=== PATIENT | male | born 1940 | race Caucasian/White ===

== ENCOUNTER 2023-10-20 06:51 | Day surgery (SDC) | payer MEDICARE ==
[2023-10-14 14:46] LABS: BASOPHILS # (AUTO) 0.1 X10'3 (0-0.2); BASOPHILS % (AUTO) 0.9 % (0-1); EOSINOPHILS # (AUTO) 0.8 X10'3 (0-0.9); EOSINOPHILS % (AUTO) 6.8 % (0-6); LYMPHOCYTES # (AUTO) 1.9 X10'3 (1.1-4.8); MEAN CORPUSCULAR HEMOGLOBIN 29.8 PG (27.0-31.0); MEAN CORPUSCULAR HGB CONC 34.4 g/dL (33.0-36.5); MEAN CORPUSCULAR VOLUME 86.6 FL (78-98); MEAN PLATELET VOLUME 8.8 FL (7.4-10.4); MONOCYTES # (AUTO) 0.7 X10'3 (0-0.9); MONOCYTES % (AUTO) 6.2 % (2-12); NEUTROPHILS # (AUTO) 7.9 X10'3 (1.8-7.7); NEUTROPHILS % (AUTO) 69.1 % (42-75); PRE OP HEMATOCRIT 40.8 % (42.0-52.0); PRE OP PLATELET COUNT 243 X10'3 (140-440); PRE OP WHITE BLOOD COUNT 11.4 10'3 (4.8-10.8); RED BLOOD COUNT 4.71 X10'6 (4.70-6.10); RED CELL DISTRIBUTION WIDTH 15.2 % (11.5-14.5)
[2023-10-14 15:01] LABS: ALBUMIN 3.6 G/DL (3.4-5.0); ALBUMIN/GLOBULIN RATIO 0.9 (1.1-1.5); ALKALINE PHOSPHATASE 120 IU/L (46-116); BLOOD UREA NITROGEN 40 MG/DL (7-18); BUN/CREATININE RATIO 23.1 (10.0-20.0); CALCIUM 9.1 MG/DL (8.5-10.1); CHLORIDE 107 MMOL/L (99-107); CREATININE 1.73 MG/DL (0.60-1.10); PRE OP ALT 32 U/L (30-65); PRE OP ANION GAP 9 (8-16); PRE OP AST 22 U/L (10-37); PRE OP BILIRUB, TOTAL 0.6 MG/DL (0.0-1.0); PRE OP GLUCOSE 99 MG/DL (70-104); PRE OP POTASSIUM 4.1 MMOL/L (3.4-5.1); PRE OP SODIUM 142 MMOL/L (135-145); TOTAL CARBON DIOXIDE 26.3 MMOL/L (24-32); TOTAL PROTEIN 7.7 G/DL (6.4-8.2); eGFR 38 ML/MIN
[~2023-10-20] VITALS: Ht 180.3 cm; Wt 135.2 kg
[2023-10-20] VITALS (8 sets, daily range): BP systolic 120–155; BP diastolic 61–85; PULSE 55–78; RESP 13–16; TEMP 78–97.8; O2SAT 95–100
[~2023-10-20 06:51] MED LIST: ALLO100T PO; ASCO-134 PO; ASPI-612 PO; DOCU100C40 PO; FAMO40TA8 PO; FLO0.4C PO; FURO40TA4 PO; GABA-530 PO; LEVO112T5 PO; MONT-40 PO; MULT-1085 PO; NAPR-996 PO; POTA-208 PO; VERA120T86 PO
[2023-10-20] MEDS: cefazolin 2gm/D5W 100mL 100 ML IV ONE (08:01)
[2023-10-20] MEDS: famotidine 20mg tablet PO ONE (08:01)
[2023-10-20] MEDS: ringers solution, lacted 1,000 ML IV SCH (08:01)
[2023-10-20] MEDS ORDERED: hydrALAZINE 20mg/ml inj. IV PRN (08:30)
[2023-10-20] MEDS ORDERED: ondansetron/PF 4mg/2ml inj IV PRN (08:30)
[2023-10-20] MEDS ORDERED: ringers solution, lacted 1,000 ML IV SCH (08:30)
[2023-10-20] MEDS ORDERED: morphine 2 MG/ML inj. syringe IV PRN (08:30)
[2023-10-20] MEDS ORDERED: labetalol 20mg/4ml (5mg/ml) syringe IV PRN (08:30)
[2023-10-20] MEDS ORDERED: morphine 4 MG/ML inj SYRINge IV PRN (08:30)
[2023-10-20] MEDS ORDERED: fentaNYL/PF 50MCG/1 ML 2ML syringe ONE (09:30)
[2023-10-20] MEDS ORDERED: MIDAZolam 1 MG/ML 5ML VIAL ONE (09:30)
[2023-10-20] MEDS ORDERED: propofol inj 20 ML IV ONE (10:10)
[2023-10-20] MEDS ORDERED: LIDOcaine 2% (20mg/ml) 5ml vial ONE (10:10)
[2023-10-20] MEDS: BUPIVAcaine/PF 2.5mg/ml (0.25%) 10ml vial ONE (10:14)
[2023-10-20] MEDS: LIDOcaine 2% (20mg/ml) 5ml vial ONE (10:15)
== END 2023-10-20 11:17 | disposition home or self-care (01) ==
LOC: PAS 06:51
PROVIDERS: ATTEND Orthopaedic Surgery Hand Surgery
DX: G56.01 Carpal tunnel syndrome, right upper limb (principal); M65.351 Trigger finger, right little finger; I10 Essential (primary) hypertension; E66.9 Obesity, unspecified; K21.9 Gastro-esophageal reflux disease without esophagitis; M10.9 Gout, unspecified; Z86.73 Personal history of transient ischemic attack (TIA), and cerebral infarction without residual deficits; Z79.82 Long term (current) use of aspirin; Z79.890 Hormone replacement therapy; Z79.891 Long term (current) use of opiate analgesic; Z79.899 Other long term (current) drug therapy; Z96.652 Presence of left artificial knee joint; Z68.41 Body mass index [BMI] 40.0-44.9, adult
CPT/HCPCS: 26055; 36415; 64721; 80053; 82948; 85025; J0690; J2250; J2704; J3010; J3490; J7030; J7120; Z7506; Z7512; A4215; A6449